=== PATIENT | male | born 1995 | race Caucasian/White ===

== ENCOUNTER 2017-04-26 16:57 | Emergency (ER) | payer OTHER ==
[2017-04-26 17:01] VITALS: RESP 18; TEMP 98.4
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
[2017-04-26 19:12] VITALS: BP 107/64; PULSE 67; O2SAT 96
== END 2017-04-26 19:11 | disposition home or self-care (01) ==
PROC: 0HQ0XZZ Repair Scalp Skin, External Approach (ICD-10-PCS; principal; 2017-04-26)
DX: S01.01XA Laceration without foreign body of scalp, initial encounter (principal); W22.8XXA Striking against or struck by other objects, initial encounter